=== PATIENT | male | born 1990 | race Caucasian/White ===

== ENCOUNTER 2023-12-18 08:02 | Day surgery (SDC) | payer OTHER ==
[~2023-12-18] VITALS: Ht 175.3 cm; Wt 193.2 kg
[~2023-12-18 08:02] MED LIST: LIDOCAINE/PF 2% 5 ML VIAL ONE; PROPOFOL 1% 20 ML VIAL IVP ONE; SODIUM CHLORIDE 0.9% 1,000 ML ONE
[2023-12-18] MEDS: SODIUM CHLORIDE 0.9% 1,000 ML IV ONE (09:27)
== END 2023-12-18 11:50 | disposition home or self-care (01) ==
LOC: SURGERY 08:02
PROVIDERS: ATTEND Internal Medicine Gastroenterology
DX: K52.9 Noninfective gastroenteritis and colitis, unspecified (principal); R10.9 Unspecified abdominal pain; K59.89 Other specified functional intestinal disorders; I10 Essential (primary) hypertension; E66.01 Morbid (severe) obesity due to excess calories; Z68.44 Body mass index [BMI] 60.0-69.9, adult; Z79.899 Other long term (current) drug therapy
CPT/HCPCS: 45380; 88305; C1769; J2704; J3490; J7030